=== PATIENT | female | born 1980 | race African-American/Black ===

== ENCOUNTER 2017-08-28 21:27 | Emergency (ER) | payer BC ==
--- NOTE | 2017-08-28 21:38 | PDOC ---
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 Pain with deep inspiration. V/s on arrival are unremarkable. Breath sounds distant bilaterally. -Chest xray -To Main ED for further evaluation
[2017-08-28 21:43] VITALS: TEMP 98; BMI 28.0
[2017-08-28] MEDS ORDERED: ASPIRIN 81 MG CHEWABLE TABLETS PO ONE (23:09)
--- NOTE | 2017-08-28 23:43 | PDOC ---
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 She states that the pain is constant under her left breast radiating under the left arm. She notes that the pain is progressively getting worse. She states that the pain is worse with deep inspiration. She denies any nausea or vomiting. FH - Brother at 41 after cardiac arrest; she reports hx of fx of DM, htn (Peggy Lanier) Past History <Peggy Lanier - Last Filed: 08/28/17 23:50> - Suicide/Smoking/Psychosocial Hx Smoking History: Unknown if ever smoked Have you smoked in the past 12 months: No Information on smoking cessation initiated: No Hx Alcohol Use: No Drug/Substance Use Hx: No <Sally Pedraza - Last Filed: 08/29/17 01:54> - Past Medical History Allergies/Adverse Reactions: Allergies Allergy/AdvReac Type Severity Reaction Status Date / Time No Known Allergies Allergy Verified 08/28/17 21:44 Home Medications: Ambulatory Orders NK [No Known Home Medication] 08/29/17 Review of Systems - Review of Systems Able to Perform ROS?: Yes <Peggy Lanier - Last Filed: 08/28/17 23:50> <Sally Pedraza - Last Filed: 08/29/17 01:54> - Review of Systems Comments:: 08/28/17 23:47 CONSTITUTIONAL: Absent: fever, chills, diaphoresis, generalized weakness, malaise, loss of appetite HEENT: Absent: rhinorrhea, nasal congestion, throat pain, throat swelling, difficulty swallowing, mouth swelling, ear pain, eye pain, visual Changes CARDIOVASCULAR: Present: chest pain Absent: syncope, palpitations, irregular heart rate, lightheadedness, peripheral edema RESPIRATORY: Absent: cough, shortness of breath, dyspnea with exertion, orthopnea, wheezing, stridor, hemoptysis GASTROINTESTINAL: Absent: abdominal pain, abdominal distension, nausea, vomiting, diarrhea, constipation, melena, hematochezia GENITOURINARY: Absent: dysuria, frequency, urgency, hesitancy, hematuria, flank pain, genital pain MUSCULOSKELETAL: Absent: myalgia, arthralgia, joint swelling SKIN: Absent: rash, itching, pallor HEMATOLOGIC/IMMUNOLOGIC: Absent: easy bleeding, easy bruising, lymphadenopathy, frequent infections ENDOCRINE: Absent: unexplained weight gain, unexplained weight loss, heat intolerance, cold intolerance NEUROLOGIC: Absent: headache, focal weakness or paresthesias, dizziness, unsteady gait, seizure, mental status changes, bladder or bowel incontinence PSYCHIATRIC: Absent: anxiety, depression, suicidal or homicidal ideation, hallucinations. (Peggy Lanier) *Physical Exam <Peggy Lanier - Last Filed: 08/28/17 23:50> <Sally Pedraza - Last Filed: 08/29/17 01:54> - Vital Signs Last Vital Signs Temp Pulse Resp BP Pulse Ox 98.0 F 77 16 140/72 98 08/28/17 21:39 08/28/17 21:39 08/28/17 21:39 08/28/17 21:39 08/28/17 21:39 - Physical Exam Comments: 08/28/17 23:47 GENERAL: Well developed, well nourished. Awake and alert. No acute distress. HEENT: Normocephalic, atraumatic. PERRLA, EOMI. No conjunctival pallor. Sclera are non- icteric. Moist mucous membranes. Oropharynx is clear. NECK: Supple. Full ROM. No JVD. Carotid pulses 2+ and symmetric, without bruits. No thyromegaly. No lymphadenopathy. CARDIOVASCULAR: Regular rate and rhythm. No murmurs, rubs, or gallops. Distal pulses are 2+ and symmetric. PULMONARY: No evidence of respiratory distress. Lungs clear to auscultation bilaterally. No wheezing, rales or rhonchi. ABDOMINAL: Soft. Non-tender. Non-distended. No rebound or guarding. No organomegaly. Normoactive bowel sounds. MUSCULOSKELETAL Normal range of motion at all joints. No bony deformities or tenderness. No CVA tenderness. EXTREMITIES: No cyanosis. No clubbing. No edema. No calf tenderness. SKIN: Warm and dry. Normal capillary refill. No rashes. No jaundice. NEUROLOGICAL: Alert, awake, appropriate. Cranial nerves 2-12 intact. No deficits to light touch and temperature in face, upper extremities and lower extremities. No motor deficits in the in face, upper extremities and lower extremities. Normoreflexic in the upper and lower extremities. Normal speech. Toes are down-going bilaterally. Gait is normal without ataxia. PSYCHIATRIC: Cooperative. Good eye contact. Appropriate mood and affect. (Peggy Lanier) Heart Score/ECG Review <Peggy Lanier - Last Filed: 08/28/17 23:50> <Sally Pedraza - Last Filed: 08/29/17 01:54> #1 08/28/17 23:50 NS Vent rate 69 possible left atrial enlargement nonspecific T wave abnormality (Peggy Lanier) ED Treatment Course - LABORATORY CBC & Chemistry Diagram: 08/29/17 00:24 08/29/17 00:24 <Sally Pedraza - Last Filed: 08/29/17 01:54> - ADDITIONAL ORDERS Additional order review: Laboratory Results 08/29/17 08/29/17 00:24 00:24 PT with INR 12.50 H INR 1.11 Sodium 141 Potassium 3.8 Chloride 104 Carbon Dioxide 27 Anion Gap 10 BUN 15 Creatinine 0.7 Creat Clearance w eGFR > 60 Random Glucose 94 Calcium 9.3 Magnesium 2.1 Total Bilirubin 0.5 AST 12 L ALT 20 Alkaline Phosphatase 70 Creatine Kinase 174 Creatine Kinase Index 0.6 CK-MB (CK-2) 1.118 Troponin I < 0.02 Total Protein 7.8 Albumin 4.0 08/29/17 00:24 RBC 4.82 MCV 84.7 MCHC 32.1 RDW 14.3 MPV 8.6 Neutrophils % 47.3 Lymphocytes % 42.8 H Monocytes % 6.7 Eosinophils % 2.0 Basophils % 1.2 - Medications Given in the ED: ED Medications Discontinued Medications Generic Name Dose Route Start Last Admin Trade Name Freq PRN Reason Stop Dose Admin Aspirin 162 mg 08/28/17 23:09 08/29/17 00:26 Asa - PO 08/28/17 23:10 162 mg ONCE ONE Administration Ibuprofen 600 mg 08/28/17 23:59 08/29/17 00:26 Motrin - PO 08/29/17 00:00 600 mg ONCE ONE Administration *DC/Admit/Observation/Transfer <Peggy Lainer - Last Filed: 08/28/17 23:50> <Sally Pedraza - Last Filed: 08/29/17 01:54> Diagnosis at time of Disposition: Atypical chest pain - Discharge Dispostion Disposition: HOME Condition at time of disposition: Stable - Patient Instructions Printed Discharge Instructions: DI for Shortness of Breath, DI for Atypical Chest Pain Additional Instructions: Please follow up with your regular physician - Attestations Scribe Attestion: 08/28/17 23:48 Documentation prepared by ANGELES Cervantes, acting as medical coding instructor for Sally Pedraza MD/DO. (Peggy Lanier)
[2017-08-28] MEDS ORDERED: IBUPROFEN 600 MG TABLET (FP) PO ONE (23:59)
[2017-08-29] MEDS ORDERED: IBUPROFEN 600 MG TABLET (FP) PO ONE (00:17)
[2017-08-29] MEDS ORDERED: ASPIRIN 81 MG CHEWABLE TABLETS ONE (00:17)
[2017-08-29 00:31] LABS: BASO % 1.2 % (0-2.0); MCH 27.2 pg (25.7-33.7); MCHC 32.1 g/dl (32.0-36.0); MEAN CELL VOLUME 84.7 fl (80-96); MEAN PLT VOLUME 8.6 fl (7.5-11.1); NEUT % 47.3 % (42.8-82.8); PLATELET COUNT 258 K/MM3 (134-434); RDW 14.3 % (11.6-15.6)
[2017-08-29 00:51] LABS: INR 1.11 (0.82-1.09); PROTHROMBIN TIME (PATIENT) 12.5 SEC (9.98-11.88)
[2017-08-29 01:02] LABS: ANION GAP 10 (8-16); CALCIUM 9.3 mg/dL (8.5-10.1); CO2 27 mmol/L (21-32); CREATININE 0.7 mg/dL (0.55-1.02); GLUCOSE,RANDOM 94 mg/dL (74-106); MAGNESIUM 2.1 mg/dL (1.8-2.4); SGOT/AST 12 U/L (15-37); SGPT/ALT 20 U/L (12-78)
[2017-08-29 01:06] LABS: ALK PHOS 70 U/L (45-117); BILIRUBIN,TOTAL 0.5 mg/dL (0.2-1.0); CPK 174 IU/L (26-192); TOT PROT 7.8 g/dl (6.4-8.2); TROPONIN I < 0.02 ng/ml (0.00-0.05)
[2017-08-29 01:55] VITALS: BP 127/85; PULSE 83
--- NOTE | 2017-08-29 11:14 | EKG ---
Test Reason : Blood Pressure : / mmHG Vent. Rate : 069 BPM Atrial Rate : 069 BPM P-R Int : 168 ms QRS Dur : 094 ms QT Int : 396 ms P-R-T Axes : 052 018 038 degrees QTc Int : 424 ms NORMAL SINUS RHYTHM POSSIBLE LEFT ATRIAL ENLARGEMENT NONSPECIFIC T WAVE ABNORMALITY ABNORMAL ECG NO PREVIOUS ECGS AVAILABLE Confirmed by CARLITO SAGASTUME MD ([id number]) on 08/29/2017 11:14:19 AM Referred By: Confirmed By:CARLITO SAGASTUME MD
== END 2017-08-29 01:55 | disposition home or self-care (01) ==
LOC: JER 21:27
DX: R07.89 Other chest pain (principal)
CPT/HCPCS: 36415; 71020-TC; 71250-TC; 80053; 82550; 82553; 83735; 84484; 85025; 85610; 93005; 93010; 99282-25